=== PATIENT | male | born 1970 | race Caucasian/White ===

== ENCOUNTER 2025-08-22 16:07 | Emergency (ER) | payer MEDICARE, SELFPAY ==
--- NOTE | ~2025-08-22 | XR_ITS ---
EXAMINATION: XR shoulder RT min 2V, 08/22/2025 16:50 SOLAR SYSTEMS DESIGNER HISTORY: fall, r shoulder pain COMPARISON: No comparisons available. Findings: No acute fracture or malalignment. No significant degenerative changes. Soft tissues unremarkable. Impression: No acute fracture or malalignment. Reviewed, dictated and finalized at location P. R SYSTEMS DESIGNER Impression: No acute fracture or malalignment.
[2025-08-22 16:10] VITALS: BP 206/120; PULSE 89; RESP 14; TEMP 37.3; O2SAT 98
--- OUTSIDE RECORDS SUMMARY | 2025-08-22 16:10 | XMS_ITS | Clinical Summary ---
Author Organization [facility] Address [address] [place] [address] Care Team Providers Care Automatic Casting Machine Operator Name Role Phone May Coleman MD Unavailable [phone] Temi Rios PA-C Primary Care Provider [phone] Source Comments [facility],non-owned Affiliates and Associated Physician Practices is amultiple site organization consisting of ambulatory clinics and hospital sitesin [place], [place], [place] and [place]. This disclosure is being madepursuant to the Care Everywhere program and may not contain all information available regarding this patient. Last updated 18.[facility] Allergies No known active allergies Medications * Be aware that medications may not be up to date on this document. Alwaysverify current medications with the patient. atorvastatin (Lipitor) 80 MG tablet Take 1 (one) tablet by mouth once daily Active ezetimibe (Zetia) 10 MG tablet Take 2 (two) tablets by mouth once daily 02/02/2023 Active dilTIAZem SR 24hr (Dilacor XR) 120 MG capsule Take 1 (one) capsule by mouth once daily 03/30/2022 Active traZODone (Desyrel) 150 MG tablet Take 1 (one) tablet by mouth at bedtime 03/23/2023 Active metoprolol succinate XL 24hr (Toprol XL) 50 MG tablet Take 1 (one) tablet by mouth once daily Active amphetamine-dex troamphetamine (Adderall) 20 MG tablet Take 1 (one) tablet by mouth once daily as needed 02/26/2023 Active aspirin EC (Ecotrin) 81 MG tablet Take 1 (one) tablet by mouth once daily Active multivitamin daily tablet Take 1 (one) tablet by mouth daily with food Active CALCIUM CITRATE 600 mg TABS tablet Take 600 (six hundred) mg by mouth 2 times daily Active Social History Tobacco Use Types Packs/Day Years Used Date Smoking Tobacco: Never Smokeless Tobacco: Never PHQ-2 Answer Date Recorded PHQ2 TOTAL SCORE 0 03/26/2023 Sex and Gender Information Value Date Recorded Sex Assigned at Not on file Legal Sex Male 5:07 AM EDUCATIONAL PROGRAM ASSISTANT Gender Identity Not on file Sexual Orientation Not on file Last Filed Vital Signs Vital Sign Reading Time Taken Comments Blood Pressure 146/88 03/26/2023 1:05 PM CDT Pulse 89 03/26/2023 1:05 PM CDT Temperature 36.5 C (97.7 F) 03/26/2023 1:05 PM CDT Respiratory Rate 18 03/26/2023 1:05 PM CDT Oxygen Saturation 97% 03/26/2023 1:05 PM CDT Inhaled Oxygen Concentration - - Weight 159.5 kg (351 lb 9.6 oz) 03/26/2023 1:05 PM CDT Height 180.3 cm (5' 11) 03/26/2023 1:05 PM CDT Body Mass Index 49.04 03/26/2023 1:05 PM CDT Plan of Treatment Health Maintenance Due Date Last Done Comments COLOGUARD (AGES 45-75) - COL ON CA SCREENING 1968 COLON MONITORING 1968 COLONOSCOPY - COLON CA SCREENING 1968 CT COLONOGRAPHY - COLON CA SCREENING 1968 Colorectal Cancer Screening 1968 FIT - COLON CA SCREENING 1968 FLEX SIG - COLON CA SCREENING 1968 HIV SCREENING 1983 HEPATITIS C SCREENING 06/16/1986 DTAP/TDAP/TD VACCINES (1 - Tdap) 1987 HEPATITIS B VACCINE (1 of 3 - 19+ 3-dose series) 1987 PNEUMOCOCCAL VACCINE 50+ (1 of 1 - PCV) 2018 ZOSTER VACCINE (1 of 2) 2018 SCREENING FOR DIABETES 03/26/2023 DEPRESSION SCREENING 10/08/2024 03/26/2023 COVID-19 VACCINE (1 - 2023-2 5 season) 2025 INFLUENZA VACCINE (#1) 2025 HIB VACCINE Aged Out No longer eligi ble based on patient's age to complete this topic HPV VACCINE Aged Out No longer eligi ble based on patient's age to complete this topic MENINGOCOCCAL (Group B) VACC INE SHARED DECISION-MAKING Aged Out No longer eligibl e based on patient's age to complete this topic MENINGOCOCCAL GROUPS A/C/Y/W VACCINE Aged Out No longer eligible b ased on patient's age to complete this topic Insurance Care Teams Automatic Casting Machine Operator Relationship Specialty Start Date End Date Temi Rios PA-C [address] [place] [address] PCP - General Physician Electrician Radio 03/26/23 May Coleman MD [address] [place] [phone] Family Medicine 03/23/23
--- OUTSIDE RECORDS SUMMARY | 2025-08-22 16:11 | XMS_ITS | Encounter Summary ---
Author Organization [facility] Address [address] [place] [address] Care Team Providers Care Quilting Machine Operator Name Role Phone Gloria Najera MD Primary Care Provider [phone] Reason for Visit * Reason Onset Date Comments Reschedule Sep 10 appt. Will need to move MBB2 and RFA 08/22/2024 Encounter Details Date Type Department Care Team ([facility] Contact Info) Description 08/22/2024 Telephone [facility] Imaging Services [facility] [address] [place] [address] Graciela Mc GN Reschedule Sep 10 appt. Will need to move MBB2 and RFA Social History Tobacco Use Types Packs/Day Years Used Date Smoking Tobacco: Never Smokeless Tobacco: Never Alcohol Use Standard Drinks/Week Comments No 0 (1 standard drink = 0.6 oz pur e alcohol) Sex and Gender Information Value Date Recorded Sex Assigned at Not on file Legal Sex Male 6:05 AM HEAVY EQUIPMENT DIESEL MECHANIC Gender Identity Not on file Sexual Orientation Not on file documented as of this encounter Plan of Treatment Upcoming Encounters Date Type Department Care Team ([facility] Contact Info) Description 08/26/2025 9:45 AM HEAVY EQUIPMENT DIESEL MECHANIC Appointment [facility] Imaging Services [facility] [place] [facility] [address] [place] [address] [place] [address] [address] 09/22/2025 11:00 AM HEAVY EQUIPMENT DIESEL MECHANIC Office Visit [facility] Internal Medicine [address] [address] Gloria Najera MD [address] [place] [address] documented as of this encounter Visit Diagnoses Not on filedocumented in this encounter Care Teams Quilting Machine Operator Relationship Specialty [place] [address] [place] [address] PCP - General Internal Medicine 08/07/14 documented as of this encounter
--- OUTSIDE RECORDS SUMMARY | 2025-08-22 16:11 | XMS_ITS | Encounter Summary ---
Author Organization [facility] Address [address] [place] [address] Care Team Providers Care Calender Inspector Name Role Phone Gloria Najera MD Primary Care Provider [phone] Encounter Details Date Type Department Care Team (Late Contact Info) Description 10/14/2024 Telephone [facility] [address] [place] [address] [place] [address] [facility] [address] [place] [address] Social History Tobacco Use Types Packs/Day Years Used Date Smoking Tobacco: Never Smokeless Tobacco: Never Alcohol Use Standard Drinks/Week Comments No 0 (1 standard drink = 0.6 oz pur e alcohol) Sex and Gender Information Value Date Recorded Sex Assigned at Not on file Legal Sex Male 6:05 AM FERMENTATION MANAGER Gender Identity Not on file Sexual Orientation Not on file documented as of this encounter Miscellaneous Notes * Telephone Encounter - Yaritza Day RN - 10/14/2024 2:10 PM FERMENTATION MANAGER Attempted to call patient regarding scheduling. LVM to return call ENTATION MANAGER documented in this encounter Plan of Treatment Upcoming Encounters Date Type Department Care Team (Late st Contact Info) Description 08/26/2025 9:45 AM FERMENTATION MANAGER Appointment [email or web address] [address] [place] [address] [place] [address] [facility] [address] [place] [address] 09/22/2025 11:00 AM FERMENTATION MANAGER Office Visit [facility] Internal Medicine [address] [address] Gloria Najera MD [address] [place] [address] documented as of this encounter Visit Diagnoses Not on filedocumented in this encounter Care Teams Calender Inspector Relationship Specialty Start Date End Date Gloria Najera MD [address] [place] [address] PCP - General Internal Medicine 08/07/14 documented as of this encounter
--- OUTSIDE RECORDS SUMMARY | 2025-08-22 16:11 | XMS_ITS | Patient Health Record ---
Author Organization [facility] Address [address] [place] [address] Care Team Providers Care Owner [employer] Name Role Phone All Estevez MD Primary Care Provider Unavail able SEAN RICCI Unavailable [phone] Reason For Referral No Information Medications Medication SIG (Take, Route, Frequency, Duration) Notes Start Date End Date Status Aspirin 81 81 MG Tablet Chewable 1 tablet Orally Once a day; Duration: 30 day(s) Active dilTIAZem HCl 120 MG Tablet as directed Orally Active Problems Problem Type SNOMED Code ICD Code Onset Dates Problem Status W/U Status Risk Notes Problem Atherosclerotic heart disease of [place] coronary artery without angina pectoris (905406902926040) Atherosclerotic heart disease of [place] coronary artery without angina pectoris (I25.10) Active confirmed Problem Atherosclerotic heart disease of [place] coronary artery without angina pectoris (490124272679406) Coronary artery disease involving [place] coronary artery of [place] heart without angina pectoris (I25.10) Active confirmed Problem Obese class I (finding) (337793681810613) Obesity (BMI 30.0-34.9) (E66.9) Active confirmed Problem Essential hypertension (14610091) HTN (hypertension), benign (I10) Active confirmed Problem CHF (congestive heart failure), NYHA class II, acute on chronic, diastolic (I50.33) Active confirmed Plan Of Treatment No Information Insurance Providers Payer Name Payer Address Payer Phone Subscriber Number Group Number Insured Name Patient Relationship to Insured Coverage Start Date Coverage End Date [place] [address] [place] [address] [id number] Scot Chavez Self - patient is the insured 1
--- OUTSIDE RECORDS SUMMARY | 2025-08-22 16:11 | XMS_ITS | Encounter Summary ---
Author Organization [facility] Address [address] [place] [address] Care Team Providers Care Senior Software Project Manager Name Role Phone Gloria Najera MD Primary Care Provider [phone] Encounter Details Date Type Department Care Team (Late Contact Info) Description 09/24/2024 Telephone [facility] Imaging Services [facility] [address] [place] [address] Lucho Alejandro RN Social History Tobacco Use Types Packs/Day Years Used Date Smoking Tobacco: Never Smokeless Tobacco: Never Alcohol Use Standard Drinks/Week Comments No 0 (1 standard drink = 0.6 oz pur e alcohol) Sex and Gender Information Value Date Recorded Sex Assigned at Not on file Legal Sex Male 6:05 AM SENIOR PROJECT COORDINATOR Gender Identity Not on file Sexual Orientation Not on file documented as of this encounter Plan of Treatment Upcoming Encounters Date Type Department Care Team (Late Contact Info) Description 08/26/2025 9:45 AM SENIOR PROJECT COORDINATOR Appointment [facility] Imaging Services [facility] [address] [place] [address] [place] [address] [address] 09/22/2025 11:00 AM SENIOR PROJECT COORDINATOR Office Visit [facility] Internal Medicine [address] [address] [place] [address] [place] [address] documented as of this encounter Visit Diagnoses Not on filedocumented in this encounter Care Teams Senior Software Project Manager Relationship Specialty [place] [address] [place] [phone] PCP - General Internal Medicine 08/07/14 documented as of this encounter
--- OUTSIDE RECORDS SUMMARY | 2025-08-22 16:12 | XMS_ITS | Patient Health Record ---
Author Organization [facility] Address [address] [place] [address] Care Team Providers Care Trust Mail Clerk Name Role Phone Kathy Biggs Primary Care Provider Allergies No Known Allergies Reason For Referral No Information Medications Medication SIG (Take, Route, Frequency, Duration) Notes Start Date End Date Status Melatonin 10 MG 1 tablet in the evening, 1-2 hours prior to bedtime Orally at night Active Eliquis 5 MG as directed Orally Pt states mail carrier technician told him this is his last month taking this Active traZODone HCl 150 MG TAKE 1 TABLET BY MOUTH EVERY DAY AT BEDTIME; Duration: 30 Active Adderall 20 MG 1 tablet Orally Twice a day Prn Active Lopressor 50 MG 1 tablet with food Orally Twice a day; Duration: 30 day(s) Active Aspirin 81 MG 1 tablet Orally Once a day; Duration: 30 day(s) Active Lipitor 80 MG 1 tablet Orally Once a day; Duration: 30 day(s) At bedtime Active Social History Tobacco Use: Social History Observation Description Date Details (start date - stop date) Never Smoker NA - NA Sex Assigned At : Social History Observation Description Sex Assigned At Male Dont use, Tobacco Use/Smoking Question Answer Notes Are you a nonsmoker Problems Problem Type SNOMED Code ICD Code Onset Dates Problem Status W/U Status Risk Notes Problem Morbid obesity (disorder) (834922787) Morbid (severe) obesity due to excess calories (E66.01) Active confirmed Problem Insomnia (427932469) Insomnia (G47.00) Active confirmed Problem Elevated blood pressure (46715109) Elevated blood pressure (I10) Active confirmed Problem Umbilical hernia (885542682) Umbilical hernia (K42.9) Active confirmed Problem Candidiasis (18413823) Yeast infection (B37.9) Active confirmed Problem Shoulder joint pain (756253564) Shoulder pain, right (M25.511) Active confirmed Plan Of Treatment No Information Insurance Providers Payer Name Payer Address Payer Phone Subscriber Number Group Number Insured Name Patient Relationship to Insured Coverage Start Date Coverage End Date [facility] Att Claims Department [address] [place] [address] [phone] [id number] Scot Chavez Self - patient is the insured 2 Medical (General) History Medical History History ICD Code hyperlipidemia hypertension Surgical History Surgery Date(Month/Year) Quadruple Bipass 2020 Hospitalization History Reason Date(Month/Year) bipass surgery 2020
[2025-08-22] MEDS: TETANUS,DIPHTHERIA,AC PERTUSSIS ADULT (0.5 ML) BOOSTRIX IM (17:07)
--- NOTE | 2025-08-22 17:25 | ED.WOUNDLAC ---
HPI - Wound/Laceration General Chief Complaint: Wound/Laceration Stated Complaint: fall, right eye lac Time Seen by Provider: 08/22/25 16:49 Source: patient Mode of arrival: ambulatory Limitations: no limitations History of Present Illness HPI narrative: This is a 55-year-old male with history of hypertension and hyperlipidemia who presents the ED for a fall. Patient states that he was in the shower when he slipped and fell in his right forehead and right shoulder. Denies loss conscious. He is not on any blood thinners. He sustained a laceration to his right head. He also reports right shoulder pain. Related Data Allergies Allergy/AdvReac Type Severity Reaction Status Date / Time No Known Allergies Allergy Verified 08/22/25 16:39 Review of Systems Review of Systems: Gen.: Denies fevers or chills Eyes: Denies eye pain or visual change ENT: Denies congestion Respiratory: Denies shortness of breath or cough CV: Denies chest pain or palpitations GI: Denies abdominal pain nausea, emesis or diarrhea denies burning, urgency, frequency or hematuria Musculoskeletal: Denies back pain or muscle pain Neuro: Denies numbness, tingling, weakness or focal weakness Skin: As per HPI Except as documented, all other systems reviewed and negative Exam Narrative: APPEARANCE: No acute distress, nontoxic, resting in bed HEENT: Normocephalic, atraumatic, OMM RESPIRATORY: No respiratory distress CARDIOVASCULAR: Appears well perfused ABDOMINAL: Nondistended MUSCULOSKELETAl: Moves all extremities. No obvious deformities NEURO: Awake and alert. SKIN:: 4 cm laceration to the lateral aspect of the right forehead superior to the lateral brow, bleeding controlled. PSYCHIATRIC: Normal affect/mood, Course Vital Signs Vital signs: Vital Signs Temperature 99.1 F 08/22/25 16:10 Pulse Rate 89 08/22/25 16:10 Respiratory Rate 14 08/22/25 16:10 Blood Pressure 206/120 H 08/22/25 16:10 Pulse Oximetry 98 08/22/25 16:10 Oxygen Delivery Room Air 08/22/25 16:10 Temperature 99.1 F 08/22/25 16:10 Pulse Rate 89 08/22/25 16:10 Respiratory Rate 14 08/22/25 16:10 Blood Pressure 206/120 H 08/22/25 16:10 Pulse Oximetry 98 08/22/25 16:10 Oxygen Delivery Room Air 08/22/25 16:10 Procedures Laceration Laceration 1: Date: 08/22/25 Time: 18:15 Site: face Side (If applicable): right Size (cm): 4 Description: linear Depth: simple, single layer Local Anesthetic: lidocaine 1% and with epi Amount of anesthesia used (mL): 6 Pre-repair: wound explored and irrigated ====== Skin Level ====== Skin layer closed with: prolene Size (cm): 5-0 Number of sutures: 8 Technique: simple, interrupted ====== Subcutaneous Layer ====== ====== Muscle Layer ====== ====== Tendon Layer ====== MDM - Wound/Laceration MDM Narrative Medical decision making narrative: 55-year-old male Presenting for fall with shoulder injury and facial laceration. On initial evaluation patient was in no acute distress afebrile, hemodynamic stable. Differentials include but are not limited to: Fracture, sprain, strain, contusion, laceration abrasion Notable exam findings: 4 cm laceration over the right eyebrow. Tenderness over the right AC joint without deformity I personally reviewed the patient's images and interpret as follows: X-ray right shoulder showed no acute process. Laceration was repaired as above, patient tolerated procedure well. He was given Toradol for his shoulder pain. Patient was deemed appropriate for discharge at this time. The patient was educated on Tylenol and ibuprofen use. Patient was advised follow-up with their PCP in the next week for re-evaluation and suture removal. Patient was agreeable to this plan. Given strict return precautions. Medical Records Attestation: I reviewed the patient's medical records. Imaging Data Radiologist's impression: Impressions Shoulder X-Ray 08/22/25 17:27 Impression: No acute fracture or malalignment. Discharge Plan Discharge Clinical Impression: Laceration Fall Qualifiers: Encounter type: initial encounter Qualified Code(s): W19.XXXA - Unspecified fall, initial encounter Contusion of right shoulder Qualifiers: Encounter type: initial encounter Qualified Code(s): S40.011A - Contusion of right shoulder, initial encounter Patient Disposition: Home Condition: Stable Instructions: Antibiotic Form Additional Instructions: Sutures may be removed in the next 5-7 days. Apply ice to the area 15 minutes on 15 minutes off for swelling. Take Tylenol and ibuprofen for the pain. Follow up with her PCP in the next week for re-evaluation. Return to the ED for any new or worsening symptoms. Patient Language: Thai Follow-up/Referrals: PHYSICIAN,RATTLING MACHINE TENDER [Non-Staff, Internal Medicine]
[2025-08-22] MEDS: KETOROLAC 30 MG/ML VIAL (*BKC) IM (18:51)
== END 2025-08-22 18:58 | disposition home or self-care (01) ==
PROVIDERS: Emergency Provider Student in an Organized Health Care Education/Training Program
DX: S01.81XA Laceration without foreign body of other part of head, initial encounter (principal); S40.011A Contusion of right shoulder, initial encounter; Z23 Encounter for immunization; I10 Essential (primary) hypertension; E78.5 Hyperlipidemia, unspecified; W18.2XXA Fall in (into) shower or empty bathtub, initial encounter
CPT/HCPCS: 12013; 73030; 90471; 90715; 96372; 99283; J1885